=== PATIENT | male | born 1955 | race Two or more races ===

== ENCOUNTER → 2017-02-09 | Outpatient (CLI) | payer MEDICAID | LOC: RAD 10:26 | DX: M25.511 Pain in right shoulder (principal) ==

== ENCOUNTER → 2017-06-11 | Outpatient (CLI) | payer MEDICAID ==
--- NOTE | 2017-06-11 11:20 | RADIOLOGY REPORT PS360 ---
CERVICAL SPINE 4 OR 5 VIEWS COMPARISON: Cervical spine 01/05/2017 HISTORY: Neck pain, right shoulder paresthesias TECHNIQUE: AP lateral and oblique views and odontoid view FINDINGS: There is normal curvature and alignment. C1-C7 appear intact. There is minor disc space narrowing at the C5-6 level. There is minor neural foraminal narrowing on the right side at C5-6 secondary to spurring of the uncinate joints. The remaining neural foramina appear normal. The prevertebral soft tissues are normal and the odontoid is normal. Impression: Mild degenerative disc disease C5-6 with mild neural foraminal narrowing right side C5-6 level slightly more prominent than on the previous exam 05 January.
--- NOTE | 2017-06-11 12:12 | RADIOLOGY REPORT PS360 ---
MRI-C-SPINE W/O COMPARISON: Plain film cervical spine same date HISTORY: Neck pain, right shoulder paresthesias TECHNIQUE: Standard sagittal and axial sequences were performed along with a myelogram sequence. FINDINGS: There is normal curvature and alignment. The marrow signal is normal in all cervical vertebrae. There is a very small central disc protrusion C3-4 only minimally effacing the CSF. There is a cyst moderate size central disc protrusion C4-5 which abuts and contours the cervical cord somewhat at this level. There is a somewhat more broad-based central and right foraminal disc protrusion C5-6 which more diffusely contours the cervical cord. There is mild compromise of the right neural foramen at C5-6 level secondary to the broad-based disc protrusion. There is a small broad-based left paracentral disc protrusion C6-7 which only minimally effaces the CSF and does not contact the cord. The myelogram sequence shows complete loss of CSF signal mid cervical spine. IMPRESSION: Multilevel disc protrusions most prominent at the C4-5 and C5-6 level where there is definite contouring of the cervical cord and definite neural foraminal compromise on the right side at C5-6 level.
== END ==
LOC: RAD 10:47
DX: M54.2 Cervicalgia (principal); M25.511 Pain in right shoulder; R20.2 Paresthesia of skin; G89.29 Other chronic pain